=== PATIENT | female | born 1965 | race Caucasian/White ===

== ENCOUNTER → 2017-11-08 | Emergency (ER) | payer MEDICAID | DX: Z53.21 Procedure and treatment not carried out due to patient leaving prior to being seen by health care provider (principal) ==

== ENCOUNTER 2017-12-04 04:38 | Emergency (ER) | payer MEDICAID ==
[2017-12-04] MEDS ORDERED: NS 1,000 ML IV ONE ×2 (04:43→05:30)
--- NOTE | 2017-12-04 04:47 | EDPHY ---
H & P Time Seen by Provider: 12/04/17 04:45 HPI/ROS: HPI CHIEF COMPLAINT: Hyperglycemia possible DKA HISTORY OF PRESENT ILLNESS: Patient very pleasant 52-year-old female she is a insulin-dependent diabetic, history of anxiety, and COPD, she just recently moved to [place] in [place] from [place]. She was without her diabetic medications for months. She does recently saw local physician and was started on Levemir 10 units at night. Also metformin 1000 mg twice daily. She presents emergency room stating that her blood sugars really high over 500. She does have dry mouth. She denies any pain anywhere. She does complain of some mild fatigue. She is unsure if she is in DKA. Past Medical History: Anxiety, depression, COPD, insulin-dependent diabetes, neuropathy Past Surgical History: No recent surgery Social History: Smokes tobacco daily, marijuana, denies other alcohol or illicit drugs Family History: Noncontributory ROS REVIEW OF SYSTEMS: A comprehensive 10 point review of systems is otherwise negative aside from elements mentioned in the history of present illness. Exam Constitutional appears nontoxic, triage nursing summary reviewed, vital signs reviewed, awake/alert. Eyes normal conjunctivae and sclera, EOMI, PERRLA. HENT normal inspection, atraumatic, dry mucus membranes, no epistaxis, neck supple/ no meningismus, no raccoon eyes. Respiratory clear to auscultation bilaterally, normal breath sounds, no respiratory distress, no wheezing. Cardiovascular rate normal, regular rhythm, no murmur, no edema, distal pulses normal. Gastrointestinal soft, non-tender, no rebound, no guarding, normal bowel sounds, no distension, no pulsatile mass. Genitourinary no CVA tenderness. Musculoskeletal no midline vertebral tenderness, full range of motion, no calf swelling, no tenderness of extremities, no meningismus, good pulses, neurovascularly intact. Skin pink, warm, & dry, no rash, skin atraumatic. Neurologic awake, alert and oriented x 3, AAOx3, moves all 4 extremities equally, motor intact, sensory intact, CN II-XII intact, normal cerebellar, normal vision, normal speech. Psychiatric normal mood/affect. Heme/Lymph/Immune no lymphadenopathy. Differential Diagnosis: Includes but is not limited to in a particular order DKA, hyperglycemia, dehydration, electrolyte disturbance, HONK. Medical Decision Making: Plan for this patient IV establishment blood draw, check electrolytes, evaluate for DKA Re-evaluation: 0543: Patient's blood work reviewed. Shows blood sugar close to 500. No anion gap. Bicarb is normal. Potassium normal. Patient will receive IV fluids 2 L normal saline, 10 units of subcutaneous regular insulin. There is no ketones noted in her urine. Just glucose. She does have an elevated lactic acid probably due to dehydration high blood sugar. Will repeat this. No evidence of sepsis. 0617: Patient's blood work reviewed. She has received 2 L of fluid here in 10 units subcu insulin. She is eager to be discharged home. Will need to make sure her blood sugars improved 0644: Lactic acid down. Fast was elevated due to dehydration. Not septic. 0658: Blood sugary down to 238. She is feeling much better. She has received 2 L of fluid. Retractions discussed. Understands to monitor sugars closely today. He understands return emergency room if develops worsening symptoms questions or concerns. Source: Patient, EMS Constitutional: Initial Vital Signs Temperature (C) 36.8 C 12/04/17 04:41 Heart Rate 106 H 12/04/17 04:41 Respiratory Rate 18 12/04/17 04:41 Blood Pressure 171/86 H 12/04/17 04:41 O2 Sat (%) 95 12/04/17 04:41 O2 Delivery Mode Room Air Allergies/Adverse Reactions: morphine Allergy (Verified 12/04/17 04:47) penicillin G Allergy (Verified 12/04/17 04:48) sulfamethoxazole [From ] Allergy (Verified 12/04/17 04:48) trimethoprim [From ] Allergy (Verified 12/04/17 04:48) Home Medications: Medication Instructions Recorded Levemir 10 units HS 12/04/17 Metformin 1000 mg 1,000 BID 12/04/17 Medical Decision Making - Data Points Laboratory Results: Laboratory Results 12/04/17 04:47 12/04/17 06:25 12/04/17 12/04/17 12/04/17 06:25 06:25 04:55 WBC RBC Hgb Hct MCV MCH MCHC RDW Plt Count MPV Neut % (Auto) Lymph % (Auto) [place] % (Auto) Eos % (Auto) Baso % (Auto) Nucleat RBC Rel Count Absolute Neuts (auto) Absolute Lymphs (auto) Absolute Monos (auto) Absolute Eos (auto) Absolute Basos (auto) Absolute Nucleated RBC Immature Gran % Immature Gran # VBG Lactic Acid 2.3 mmol/L H D mmol/L (0.7-2.1) Sodium 138 mEq/L mEq/L (135-145) Potassium 3.9 mEq/L mEq/L (3.5-5.2) Chloride 110 mEq/L mEq/L (97-110) Carbon Dioxide 20 mEq/l L mEq/l (22-31) Anion Gap 8 mEq/L mEq/L (8-16) BUN 17 mg/dL mg/dL (7-23) Creatinine 0.4 mg/dL L mg/dL (0.6-1.0) Estimated GFR > 60 Glucose 238 mg/dL H D mg/dL (70-100) POC Glucose Calcium 8.0 mg/dL L mg/dL (8.5-10.4) Beta-Hydroxybutyrate Urine Color PALE YELLOW Urine Appearance CLEAR Urine pH 6.0 (5.0-7.5) Ur Specific [place] 1.029 (1.002-1.030) Urine Protein NEGATIVE (NEGATIVE) Urine Ketones NEGATIVE (NEGATIVE) Urine Blood NEGATIVE (NEGATIVE) Urine Nitrate NEGATIVE (NEGATIVE) Urine Bilirubin NEGATIVE (NEGATIVE) Urine Urobilinogen NEGATIVE EU EU (0.2-1.0) Ur Leukocyte Esterase NEGATIVE (NEGATIVE) Urine RBC NONE SEEN /hpf /hpf (0-3) Urine WBC NONE SEEN /hpf /hpf (0-3) Ur Epithelial Cells NONE SEEN /lpf /lpf (NONE-1+) Urine Glucose 3+ H (NEGATIVE) 12/04/17 12/04/17 12/04/17 04:52 04:47 04:47 WBC 11.10 10^3/uL H 10^3/uL (3.80-9.50) RBC 4.58 10^6/uL 10^6/uL (4.18-5.33) Hgb 13.8 g/dL g/dL (12.6-16.3) Hct 39.8 % % (38.0-47.0) MCV 86.9 fL fL (81.5-99.8) MCH 30.1 pg pg (27.9-34.1) MCHC 34.7 g/dL g/dL (32.4-36.7) RDW 13.5 % % (11.5-15.2) Plt Count 333 10^3/uL 10^3/uL (150-400) MPV 10.4 fL fL (8.7-11.7) Neut % (Auto) 52.0 % % (39.3-74.2) Lymph % (Auto) 40.5 % % (15.0-45.0) Johnston % (Auto) 5.7 % % (4.5-13.0) Eos % (Auto) 1.0 % % (0.6-7.6) Baso % (Auto) 0.5 % % (0.3-1.7) Nucleat RBC Rel Count 0.0 % % (0.0-0.2) Absolute Neuts (auto) 5.78 10^3/uL 10^3/uL (1.70-6.50) Absolute Lymphs (auto) 4.49 10^3/uL H 10^3/uL (1.00-3.00) Absolute Monos (auto) 0.63 10^3/uL 10^3/uL (0.30-0.80) Absolute Eos (auto) 0.11 10^3/uL 10^3/uL (0.03-0.40) Absolute Basos (auto) 0.06 10^3/uL 10^3/uL (0.02-0.10) Absolute Nucleated RBC 0.00 10^3/uL 10^3/uL (0-0.01) Immature Gran % 0.3 % % (0.0-1.1) Immature Gran # 0.03 10^3/uL 10^3/uL (0.00-0.10) VBG Lactic Acid Sodium 136 mEq/L mEq/L (135-145) Potassium 4.3 mEq/L mEq/L (3.5-5.2) Chloride 101 mEq/L mEq/L (97-110) Carbon Dioxide 21 mEq/l L mEq/l (22-31) Anion Gap 14 mEq/L mEq/L (8-16) BUN 20 mg/dL mg/dL (7-23) Creatinine 0.5 mg/dL L mg/dL (0.6-1.0) Estimated GFR > 60 Glucose 494 mg/dL H mg/dL (70-100) POC Glucose 508 mg/dL H* mg/dL (70-100) Calcium 9.1 mg/dL mg/dL (8.5-10.4) Beta-Hydroxybutyrate 0.14 mmol/L mmol/L (0.02-0.27) Urine Color Urine Appearance Urine pH Ur Specific [place] Urine Protein Urine Ketones Urine Blood Urine Nitrate Urine Bilirubin Urine Urobilinogen Ur Leukocyte Esterase Urine RBC Urine WBC Ur Epithelial Cells Urine Glucose 12/04/17 04:47 WBC RBC Hgb Hct MCV MCH MCHC RDW Plt Count MPV Neut % (Auto) Lymph % (Auto) [place] % (Auto) Eos % (Auto) Baso % (Auto) Nucleat RBC Rel Count Absolute Neuts (auto) Absolute Lymphs (auto) Absolute Monos (auto) Absolute Eos (auto) Absolute Basos (auto) Absolute Nucleated RBC Immature Gran % Immature Gran # VBG Lactic Acid 4.2 mmol/L H mmol/L (0.7-2.1) Sodium Potassium Chloride Carbon Dioxide Anion Gap BUN Creatinine Estimated GFR Glucose POC Glucose Calcium Beta-Hydroxybutyrate Urine Color Urine Appearance Urine pH Ur Specific [place] Urine Protein Urine Ketones Urine Blood Urine Nitrate Urine Bilirubin Urine Urobilinogen Ur Leukocyte Esterase Urine RBC Urine WBC Ur Epithelial Cells Urine Glucose Medications Given: Discontinued Medications Acetaminophen (Tylenol) 1,000 mg PO EDNOW ONE Stop: 12/04/17 05:17 Last Admin: 12/04/17 05:17 Dose: 1,000 mg Sodium Chloride (Ns) 1,000 mls @ 0 mls/hr IV EDNOW ONE; Wide Open PRN Reason: Protocol Stop: 12/04/17 04:44 Last Admin: 12/04/17 04:51 Dose: 1,000 mls Sodium Chloride (Ns) 1,000 mls @ 0 mls/hr IV ONCE ONE PRN Reason: Wide Open Stop: 12/04/17 05:31 Last Admin: 12/04/17 05:34 Dose: 1,000 mls Ibuprofen (Motrin) 600 mg PO EDNOW ONE Stop: 12/04/17 05:17 Last Admin: 12/04/17 05:17 Dose: 600 mg Insulin Human Regular (Humulin R) 10 unit SC EDNOW ONE Stop: 12/04/17 05:31 Last Admin: 12/04/17 05:33 Dose: 10 units Point of Care Test Results: 12/04/17 04:52 POC Glucose 508 H* Departure - Departure Disposition: Home, Routine, Self-Care Clinical Impression: Hyperglycemia Condition: Good Instructions: Diabetic Hyperglycemia (ED) Additional Instructions: 1. Monitor your sugar closely. 2. Return to the emergency room if her getting very high sugars are not feeling well. Referrals: NONE *PRIMARY CARE P,. [Primary Care Provider] - As per Instructions
[2017-12-04 05:05] LABS: PLATELET COUNT 333 10^3/uL (150-400)
[2017-12-04] MEDS ORDERED: IBUPROFEN 600 MG TAB PO ONE ×2 (05:15→05:16)
[2017-12-04] MEDS ORDERED: ACETAMINOPHEN 500 MG TAB ONE (05:15)
[2017-12-04] MEDS ORDERED: ACETAMINOPHEN 500 MG TAB PO ONE (05:16)
[2017-12-04] MEDS ORDERED: INSULIN REGULAR HUMAN 100 UNIT/ML UNIT SC ONE (05:30)
[2017-12-04] MEDS ORDERED: INSULIN REGULAR HUMAN 100 UNIT/ML UNIT ONE (05:31)
[2017-12-04 06:30] VITALS: RESP 16
[2017-12-04 07:10] VITALS: BP 164/78; PULSE 96; TEMP 98.2; O2SAT 97
== END 2017-12-04 07:09 | disposition home or self-care (01) ==
LOC: EDUNIT#
DX: E11.65 Type 2 diabetes mellitus with hyperglycemia (principal); J44.9 Chronic obstructive pulmonary disease, unspecified; F17.200 Nicotine dependence, unspecified, uncomplicated; E86.9 Volume depletion, unspecified
CPT/HCPCS: J1815